=== PATIENT | male | born 1965 | race Caucasian/White ===

== ENCOUNTER 2018-09-25 16:55 | Emergency (ER) | payer SELFPAY ==
[~2018-09-25] VITALS: Ht 167.6 cm; Wt 80.0 kg
[2018-09-25] MEDS ORDERED: CYCLOBENZAPR5 MG PO ×2 (17:26→17:34)
[2018-09-25] MEDS ORDERED: MOTRIN400 MG PO ×2 (17:26→17:34)
[2018-09-25 17:32] VITALS: BP 137/92
== END 2018-09-25 17:32 | disposition home or self-care (01) | DRG 552 ==
LOC: ED 16:55
DX: M62.830 Muscle spasm of back (principal); F17.210 Nicotine dependence, cigarettes, uncomplicated